=== PATIENT | male | born 1960 | race Caucasian/White ===

== ENCOUNTER 2022-10-16 12:34 | Outpatient (CLI) | payer OTHER, SELFPAY ==
--- NOTE | ~2022-10-16 | PE_ITS ---
EXAMINATION: PET skull to mid thigh DATE: 10/16/2022 15:14 INDICATION: Lung mass. TECHNIQUE: Blood glucose level was 85 mg/dL. 8.510 mCi of 18-fluorodeoxyglucose (18-FDG) was administ ered i.v. Low dose computed tomography (CT) images were acquired from the base of the brain to the pr oximal thighs for attenuation correction and anatomic localization. Automated exposure control was em ployed. Dose-length product (DLP) was 734 mGy-cm. Positron emission tomography (PET) images were acqu ired in the same distribution. COMPARISON: None FINDINGS: Head/neck: There is misregistration between the CT and PET images. There are no pathologically enlarg ed lymph nodes. Chest: There is scarring at the lung apices. Emphysema is noted. There are airspace and groundglass o pacities in right upper lobe with architectural distortion and bronchiectasis with increased activity . There is a tiny right pneumothorax. There is bilateral pleural thickening. No significant pleural e ffusion. Calcified left hilar and mediastinal lymph nodes are consistent with old granulomatous disea se. The heart size is normal. No pericardial effusion. There is focal increased activity in right cla vicle correlating with an old healed fracture. Abdomen/pelvis/proximal thighs: The liver, gallbladder, pancreas, and adrenal glands are normal. Calc ifications in the spleen are consistent with old granulomatous disease. There are cysts in the kidney s measuring up to 2.5 cm on the right. The prostate is moderately enlarged. There is diverticulosis o f the colon without evidence of diverticulitis. There are no dilated loops of bowel. The appendix is normal. There are no pathologically enlarged lymph nodes. There is no free intraperitoneal fluid. IMPRESSION: 1. Airspace and groundglass opacities with architectural distortion, bronchiectasis, and increased ac tivity in right upper lobe, likely infection and scarring. 2. Bilateral pleural thickening, likely benign. 3. Tiny right pneumothorax. Reviewed, dictated and finalized at location A. MANAGER IMPRESSION: 1. Airspace and groundglass opacities with architectural distortion, bronchiect asis, and increased activity in right upper lobe, likely infection and scarring . 2. Bilateral pleural thickening, likely benign. 3. Tiny right pneumothorax.
[2022-10-16 12:57] LABS: Glucose Point of Care 85 mg/dl (65-105)
== END 2022-10-16 12:35 | disposition home or self-care (01) ==
PROVIDERS: Visit Provider Nurse Practitioner Gerontology
DX: R91.8 Other nonspecific abnormal finding of lung field (principal)
CPT/HCPCS: 78815; A9552